=== PATIENT | male | born 1995 | race Caucasian/White ===

== ENCOUNTER 2017-06-05 19:49 | Emergency (ER) | payer SELFPAY ==
[~2017-06-05] VITALS: Ht 177.8 cm; Wt 63.5 kg
[2017-06-05 20:40] VITALS: BP 143/82
[2017-06-05] MEDS ORDERED: DIPHTH,PERTUSS(ACELL),TET TOX 0.5 ML DISP.SYRIN. VAX IM ONE (21:00)
[2017-06-05] MEDS ORDERED: SULF1TAB24 PO (21:14)
[2017-06-05] MEDS ORDERED: MUPI15CR TP (21:14)
--- NOTE | 2017-06-05 21:15 | PHYS DOC ---
Past Medical History Past Medical History: Other Past Surgical History: Other Additional Past Surgical Histo: R EAR DRUM Alcohol Use: Rarely Drug Use: Methamphetamine Adult General Chief Complaint Chief Complaint: ABSCESS HPI HPI Patient is a 21 year old male who presents with right forearm abscess that he noted 4 days ago. Patient states he tried to open it up yesterday but nothing drained out of it. Patient denies any fever. Review of Systems Review of Systems Constitutional: Denies fever or chills [] Musculoskeletal: Denies back pain or joint pain [] Integument: right forearm abscess Neurologic: Denies headache, focal weakness or sensory changes [] Current Medications Current Medications Current Medications Medications (Trade) Dose Ordered Sig/Saul Start Time Stop Time Status Last Admin Dose Admin Diphtheria/ Tetanus/Acell Pertussis (Boostrix) 0.5 ml ONCE ONCE 06/05/17 21:00 06/05/17 21:01 DC Allergies Allergies Allergies Coded Allergies Type Severity Reaction Last Updated Verified Penicillins Allergy Intermediate 06/05/17 No Physical Exam Physical Exam Constitutional: Well developed, well nourished, no acute distress, non-toxic appearance. [] Skin: Right proximal forearm dorsal aspect with an area of induration approximately 3 x 2 cm. The area has moderate erythema. The area is warm to touch but not fluctuant. Neurovascular exam is intact to the right forearm. Back: No tenderness, no CVA tenderness. [] Extremities: No tenderness, no cyanosis, no clubbing, ROM intact, no edema. [] Neurologic: Alert and oriented X 3, normal motor function, normal sensory function, no focal deficits noted. [] Psychologic: Affect normal, judgement normal, mood normal. [] Current Patient Data Vital Signs Vital Signs Date Time Temp Pulse Resp B/P (MAP) Pulse Ox O2 Delivery O2 Flow Rate FiO2 06/05/17 20:40 98.5 82 16 99 Room Air 98.5 EKG EKG [] Radiology/Procedures Radiology/Procedures [] Course & Med Decision Making Course & Med Decision Making Pertinent Labs and Imaging studies reviewed. (See chart for details) Patient has an abscess with cellulitis to the right forearm that is not ready to be drained. Recommended warm compresses to the area. Discharged with Bactrim. Discharged with Bactroban cream. Tetanus updated. Follow-up with PCP in 1-2 weeks. Provided return precautions and discharged in stable condition. Dragon Disclaimer Dragon Disclaimer This electronic medical record was generated, in whole or in part, using a voice recognition dictation system. Departure Departure Impression: Primary Impression: Cellulitis and abscess of upper arm and forearm Disposition: 01 HOME, SELF-CARE Condition: STABLE Referrals: NO PCP (PCP) Follow-up with your doctor in 1-2 weeks PORTER INIGUEZ MD follow up in 1-2 weeks Patient Instructions: Abscess, Cellulitis, [id number] Additional Instructions: You were seen with an abscess and cellulitis of the right forearm. Keep the area clean. Apply warm compresses to the area twice a day. Complete your oral antibiotics. Follow-up with your doctor in 1-2 weeks. Come back to the emergency room if symptoms worsen. Scripts Mupirocin Calcium (BACTROBAN CREAM) 15 Gm Cream..g. 1 GISSELLE TP TID, #30 GM Prov: NITIN ROSADO APRN 06/05/17 Sulfamethoxazole/Trimethoprim (BACTRIM DS TABLET) 1 Each Tablet 1 TAB PO BID, #20 TAB Prov: NITIN ROSADO APRN 06/05/17 NITIN ROSADO APRN Jun 05, 2017 21:15
== END 2017-06-05 21:25 | disposition home or self-care (01) ==
LOC: ER 19:49
DX: L03.113 Cellulitis of right upper limb (principal); Z88.0 Allergy status to penicillin
CPT/HCPCS: 90471; 90715; 99283-25